=== PATIENT | male | born 1960 | race Caucasian/White ===

== ENCOUNTER → 2017-05-18 | Outpatient (CLI) | payer BC ==
[~2017-05-18] MED LIST: Ativan PO; Ecotrin PO; FLOMAX0.4 MG PO; Habitrol,Nicoderm CQ TD; PROSCAR5 MG PO; PROTONIX40 MG PO; celeXA PO
== END | disposition home or self-care (01) ==
LOC: CDC 09:31
DX: R00.1 Bradycardia, unspecified (principal); I45.4 Nonspecific intraventricular block
CPT/HCPCS: 93000

== ENCOUNTER 2017-10-17 21:35 | Inpatient (IN) | payer BC ==
[~2017-10-17] VITALS: Ht 167.6 cm; Wt 66.6 kg
[~2017-10-17 21:35] MED LIST changes: +BREO ELLIPTA I1 EACH IH; +NORVASC5 MG PO; +ROBITUSSIN AC,T10 ML PO; +SPIRIVA1 INHALATI IH; +VENTOLIN HFA18 GM IH; +ZANAFLEX4 M1 PO
[2017-10-18 05:55] VITALS: BP 130/82
[2017-10-18] MEDS ORDERED: PERCOCET 5/31 TABLET PO (10:12)
[2017-10-18 14:30] VITALS: BP 140/72
[2017-10-18 14:41] VITALS: BP 140/72
[2017-10-18 14:55] LABS: HEMATOCRIT 41.3 % (38.0-50.0); MCV 92.8 FL (86-99)
[2017-10-18 19:10] VITALS: BP 120/66
[2017-10-19 00:15] VITALS: BP 119/68
[2017-10-19 08:16] VITALS: BP 135/68
[2017-10-19 09:41] LABS: HEMATOCRIT 35.8 % (38.0-50.0); HEMOGLOBIN 12.2 G/DL (12.5-16.6); MCV 90.4 FL (86-99)
[2017-10-19 10:06] LABS: CHLORIDE 103 MEQ/L (99-109); CREATININE 0.7 MG/DL (0.6-1.3); GFR ESTIMATE (CALCULATED) > 59 mL/min/ (58.99-99999); GLUCOSE 214 mg/dL (70-99); POTASSIUM 3.5 MEQ/L (3.7-5.4); SODIUM 140 MEQ/L (136-147); UREA NITROGEN (BUN) 10 mg/dL (9-23)
[2017-10-19 16:41] VITALS: BP 138/81
[2017-10-20 00:20] VITALS: BP 124/70
[2017-10-20 07:38] VITALS: BP 147/76
[2017-10-20 11:30] VITALS: BP 138/68
[2017-10-20 15:52] VITALS: BP 102/57
== END 2017-10-20 17:55 | disposition home or self-care (01) | DRG 708 ==
LOC: ENRESERV 21:35 → 2SOUTH 10-18 05:41 → 5EAST 10-18 05:41 → 2SOUTH 10-18 08:04 → ENRESERV 10-18 13:27 → 5EAST 10-18 14:22 → 2SOUTH 10-18 15:35 → 5EAST 10-20 17:55
PROVIDERS: Urology
DX: C61 Malignant neoplasm of prostate (principal); I10 Essential (primary) hypertension; J44.9 Chronic obstructive pulmonary disease, unspecified; F17.210 Nicotine dependence, cigarettes, uncomplicated; Z80.1 Family history of malignant neoplasm of trachea, bronchus and lung; Z80.3 Family history of malignant neoplasm of breast
CPT/HCPCS: 80048; 85014; 85018; 88305; 88309; 93005; 94640; 94640 76; 94760; 94799; 99202; J0131; J0690; J1100; J1170; J1885; J2175; J2250; J2710; J3010; J7120

== ENCOUNTER 2018-05-09 17:04 | Emergency (ER) | payer BC, OTHER ==
[~2018-05-09] VITALS: Ht 167.6 cm; Wt 67.4 kg
[~2018-05-09 17:04] MED LIST changes: +PERCOCET 5/31 TABLET PO
[2018-05-09 18:29] LABS: BASOPHIL (%) 0.2 % (0-1); EOSINOPHIL (%) 0 % (0-5); HEMATOCRIT 42.6 % (38.0-50.0); HEMOGLOBIN 14.9 G/DL (12.5-16.6); IMMATURE GRANULOCYTE (%) 0.2 % (0.0-0.7); LYMPHOCYTE (%) 5.8 % (15-42); LYMPHOCYTE COUNT 0.6 K/uL (1.0-2.8); MCH 31.6 PG (29.0-34.0); MCV 90.4 FL (86-99); MONOCYTE (%) 7.6 % (3-12); MONOCYTE COUNT 0.8 K/uL (0-0.8); NEUTROPHIL (%) 86.2 % (45-76); NEUTROPHIL COUNT 8.5 K/uL (1.8-6.4); PLATELET COUNT 171 K/uL (156-360); RBC DIS.WIDTH-CV 12.4 % (11.8-14.6); RBC DIS.WIDTH-SD 41.7 % (39-53); RED BLOOD COUNT 4.71 M/uL (4.00-5.50); WHITE BLOOD COUNT 9.8 K/uL (4.1-10.2)
[2018-05-09 18:42] LABS: INTER. NORMALIZED RATIO 1.2
[2018-05-09 18:45] LABS: PTT 28.9 SEC (25-37)
[2018-05-09 18:46] LABS: ALBUMIN 4.2 g/dL (3.2-4.8); CHLORIDE 105 mEq/L (99-109); POTASSIUM 3.6 mEq/L (3.7-5.4); SODIUM 139 mEq/L (136-147)
[2018-05-09 18:49] LABS: GLUCOSE 109 mg/dL (70-99); TOTAL PROTEIN 7.5 g/dL (6.4-8.3)
[2018-05-09 18:51] LABS: TOTAL BILIRUBIN 0.6 mg/dL (0.0-1.0)
[2018-05-09 18:52] LABS: ALKALINE PHOSPHATASE 115 IU/L (3-129)
[2018-05-09 18:53] LABS: CREATININE 0.8 mg/dL (0.6-1.3); GFR ESTIMATE (CALCULATED) > 59 mL/min/ (58.99-99999)
[2018-05-09 18:54] LABS: AST (GOT) 12 IU/L (2-34); DIRECT BILIRUBIN 0.3 mg/dL (0.0-0.3); TROP-I INTERPRETATION NEGATIVE; TROPONIN-I < 0.01 ng/mL (0.0-0.30); UREA NITROGEN (BUN) 15 mg/dL (9-23)
[2018-05-09 18:55] LABS: ALT (GPT) 10 IU/L (3-49)
[2018-05-09] MEDS ORDERED: ZITHROMAX Z-PA250 MG PO (20:23)
[2018-05-09 20:41] VITALS: BP 180/85
== END 2018-05-09 20:48 | disposition home or self-care (01) ==
LOC: EME 17:04
PROVIDERS: Emergency Medicine
DX: J44.1 Chronic obstructive pulmonary disease with (acute) exacerbation (principal); K21.9 Gastro-esophageal reflux disease without esophagitis; F17.200 Nicotine dependence, unspecified, uncomplicated
CPT/HCPCS: 80048; 80076; 83605; 83880; 84484; 85025; 85610; 85730; 93005; 94640; 99281; 99284; J1100